=== PATIENT | female | born 1960 | race African-American/Black ===

== ENCOUNTER → 2017-04-06 | Outpatient (CLI) | payer OTHER ==
[~2017-04-06] VITALS: Ht 152.4 cm; Wt 79.4 kg
[~2017-04-06] MED LIST: FLEXERIL10 MG PO; GILTUSS TR TAB1 EACH PO; ZITHROMAX500 MG PO; ZYRTEC10 MG PO
== END | disposition home or self-care (01) ==
LOC: PPHC 17:47
DX: H92.01 Otalgia, right ear (principal); J02.9 Acute pharyngitis, unspecified; R09.81 Nasal congestion

== ENCOUNTER 2018-06-05 07:57 | Outpatient (CLI) | payer OTHER | END 2018-06-05 08:04 | disposition home or self-care (01) | LOC: MRI 07:57 | DX: M54.5 Low back pain (principal); M54.16 Radiculopathy, lumbar region | CPT/HCPCS: 72148 ==

== ENCOUNTER 2018-06-16 13:29 | Outpatient (CLI) | payer OTHER | END 2018-06-16 13:34 | disposition home or self-care (01) | LOC: LAB 13:29 | DX: Z11.3 Encounter for screening for infections with a predominantly sexual mode of transmission (principal) ==

== ENCOUNTER → 2018-09-20 08:29 | Outpatient (CLI) | payer OTHER | END | disposition home or self-care (01) | LOC: LAB 08:29 | DX: Z12.11 Encounter for screening for malignant neoplasm of colon (principal); R42 Dizziness and giddiness; R73.01 Impaired fasting glucose ==

== ENCOUNTER 2018-09-23 09:17 | Outpatient (CLI) | payer OTHER | END 2018-09-23 09:35 | disposition home or self-care (01) | LOC: LAB 09:17 | DX: Z12.11 Encounter for screening for malignant neoplasm of colon (principal); R73.01 Impaired fasting glucose; R42 Dizziness and giddiness ==

== ENCOUNTER 2018-09-26 10:07 | Outpatient (CLI) | payer OTHER | END 2018-09-26 10:35 | disposition home or self-care (01) | LOC: MAMO-SONO 10:07 | DX: Z12.31 Encounter for screening mammogram for malignant neoplasm of breast (principal); Z87.898 Personal history of other specified conditions ==

== ENCOUNTER → 2019-01-26 | Outpatient (CLI) | payer OTHER | END | disposition home or self-care (01) | LOC: RAD 14:37 | DX: M54.5 Low back pain (principal); M54.6 Pain in thoracic spine; M54.2 Cervicalgia; M25.511 Pain in right shoulder ==

== ENCOUNTER → 2019-11-29 | Outpatient (CLI) | payer OTHER | END | disposition home or self-care (01) | LOC: PPH VACUNA 09:00 | DX: Z23 Encounter for immunization (principal) ==

== ENCOUNTER → 2019-12-21 09:51 | Outpatient (CLI) | payer OTHER | END | disposition home or self-care (01) | LOC: LAB 09:51 | PROVIDERS: ATTEND Internal Medicine | DX: I10 Essential (primary) hypertension (principal); E03.8 Other specified hypothyroidism; M54.5 Low back pain; E78.89 Other lipoprotein metabolism disorders; E11.51 Type 2 diabetes mellitus with diabetic peripheral angiopathy without gangrene; E55.9 Vitamin D deficiency, unspecified; E66.8 Other obesity; G62.89 Other specified polyneuropathies; M89.8X8 Other specified disorders of bone, other site; N63.10 Unspecified lump in the right breast, unspecified quadrant; N63.11 Unspecified lump in the right breast, upper outer quadrant; N63.12 Unspecified lump in the right breast, upper inner quadrant ==

== ENCOUNTER → 2020-01-04 | Outpatient (CLI) | payer OTHER | END | disposition home or self-care (01) | LOC: LAB 17:16 | PROVIDERS: ATTEND Internal Medicine | DX: I10 Essential (primary) hypertension (principal); M54.5 Low back pain; Z01.810 Encounter for preprocedural cardiovascular examination; E03.8 Other specified hypothyroidism; E78.89 Other lipoprotein metabolism disorders; E11.51 Type 2 diabetes mellitus with diabetic peripheral angiopathy without gangrene; E55.9 Vitamin D deficiency, unspecified; E66.8 Other obesity; G62.89 Other specified polyneuropathies; M89.8X8 Other specified disorders of bone, other site; N63.10 Unspecified lump in the right breast, unspecified quadrant; N63.11 Unspecified lump in the right breast, upper outer quadrant; N63.12 Unspecified lump in the right breast, upper inner quadrant ==

== ENCOUNTER 2020-02-21 12:12 | Outpatient (CLI) | payer OTHER | END 2020-02-21 15:00 | disposition home or self-care (01) | LOC: PPH VACUNA 12:12 | DX: Z23 Encounter for immunization (principal) ==

== ENCOUNTER 2020-04-09 15:28 | Outpatient (CLI) | payer OTHER | END 2020-04-09 15:35 | disposition home or self-care (01) | LOC: LAB 15:28 | PROVIDERS: ATTEND Physical Medicine & Rehabilitation | DX: Z03.818 Encounter for observation for suspected exposure to other biological agents ruled out (principal); Z20.828 Contact with and (suspected) exposure to other viral communicable diseases; R05 Cough; R50.9 Fever, unspecified ==

== ENCOUNTER 2020-04-15 11:14 | Outpatient (CLI) | payer OTHER | END 2020-04-15 11:17 | disposition home or self-care (01) | LOC: LAB 11:14 | PROVIDERS: ATTEND Internal Medicine | DX: I10 Essential (primary) hypertension (principal); M54.5 Low back pain; E03.8 Other specified hypothyroidism; E78.89 Other lipoprotein metabolism disorders; E11.51 Type 2 diabetes mellitus with diabetic peripheral angiopathy without gangrene; E55.9 Vitamin D deficiency, unspecified; E66.8 Other obesity; G62.89 Other specified polyneuropathies; M89.8X8 Other specified disorders of bone, other site; N63.11 Unspecified lump in the right breast, upper outer quadrant; N63.12 Unspecified lump in the right breast, upper inner quadrant; L13.0 Dermatitis herpetiformis; Z13.820 Encounter for screening for osteoporosis ==

== ENCOUNTER 2020-05-01 13:19 | Outpatient (CLI) | payer OTHER | END 2020-05-01 13:28 | disposition home or self-care (01) | LOC: LAB 13:19 | PROVIDERS: ATTEND Otolaryngology Otology & Neurotology | DX: I10 Essential (primary) hypertension (principal); M54.5 Low back pain; E03.8 Other specified hypothyroidism; E78.89 Other lipoprotein metabolism disorders; E11.51 Type 2 diabetes mellitus with diabetic peripheral angiopathy without gangrene; E55.9 Vitamin D deficiency, unspecified; E66.8 Other obesity; G62.89 Other specified polyneuropathies; M89.8X8 Other specified disorders of bone, other site; N63.10 Unspecified lump in the right breast, unspecified quadrant; N63.11 Unspecified lump in the right breast, upper outer quadrant; L13.0 Dermatitis herpetiformis; Z13.820 Encounter for screening for osteoporosis ==

== ENCOUNTER → 2020-10-28 09:32 | Outpatient (CLI) | payer OTHER | END | disposition home or self-care (01) | LOC: RAD 09:32 | PROVIDERS: ATTEND Physical Medicine & Rehabilitation | DX: S62.91XA Unspecified fracture of right hand, initial encounter for closed fracture (principal) ==

== ENCOUNTER 2020-12-30 12:48 | Outpatient (CLI) | payer OTHER | END 2020-12-30 12:59 | disposition home or self-care (01) | LOC: RAD 12:48 | PROVIDERS: ATTEND Physical Medicine & Rehabilitation | DX: M54.59 Other low back pain (principal); S52.601D Unspecified fracture of lower end of right ulna, subsequent encounter for closed fracture with routine healing; S52.501D Unspecified fracture of the lower end of right radius, subsequent encounter for closed fracture with routine healing ==

== ENCOUNTER 2021-04-10 08:00 | Outpatient (CLI) | payer OTHER ==
[~2021-04-10 08:00] MED LIST changes: +ALEVE220 M1 PO; +DUI500 PO; +PERCOCET 5-3251 EACH PO
== END 2021-04-10 08:30 | disposition home or self-care (01) ==
LOC: PPH VACUNA 08:00
PROVIDERS: ATTEND Emergency Medicine Pediatric Emergency Medicine
DX: Z23 Encounter for immunization (principal)
CPT/HCPCS: 90686; G0008

== ENCOUNTER 2021-06-08 15:23 | Outpatient (CLI) | payer OTHER | END 2021-06-08 15:38 | disposition home or self-care (01) | LOC: SONOGRAMA 15:23 | PROVIDERS: ATTEND Physical Medicine & Rehabilitation | DX: M25.511 Pain in right shoulder (principal) ==

== ENCOUNTER 2021-11-05 13:28 | Outpatient (CLI) | payer OTHER | END 2021-11-05 13:30 | disposition home or self-care (01) | LOC: MRI 13:28 | PROVIDERS: ATTEND Physical Medicine & Rehabilitation | DX: M54.2 Cervicalgia (principal); M54.12 Radiculopathy, cervical region | CPT/HCPCS: 72141 ==

== ENCOUNTER 2021-12-08 12:56 | Outpatient (CLI) | payer OTHER | END 2021-12-08 13:03 | disposition home or self-care (01) | LOC: LAB 12:56 | PROVIDERS: ATTEND Internal Medicine Hematology & Oncology | DX: K29.40 Chronic atrophic gastritis without bleeding (principal); D51.3 Other dietary vitamin B12 deficiency anemia; K90.0 Celiac disease ==

== ENCOUNTER → 2021-12-17 | Outpatient (CLI) | payer OTHER | END | disposition home or self-care (01) | LOC: MAMO-SONO 13:35 | DX: Z12.31 Encounter for screening mammogram for malignant neoplasm of breast (principal); N64.4 Mastodynia ==

== ENCOUNTER 2021-12-23 13:28 | Outpatient (CLI) | payer OTHER | END 2021-12-23 13:32 | disposition home or self-care (01) | LOC: NUCLEAR 13:28 | PROVIDERS: ATTEND Obstetrics & Gynecology | DX: M81.0 Age-related osteoporosis without current pathological fracture (principal); Z91.040 Latex allergy status ==

== ENCOUNTER 2022-04-22 16:12 | Outpatient (CLI) | payer OTHER | END 2022-04-22 16:13 | disposition home or self-care (01) | LOC: LAB 16:12 | PROVIDERS: ATTEND Internal Medicine Hematology & Oncology | DX: D70.8 Other neutropenia (principal); D51.3 Other dietary vitamin B12 deficiency anemia ==

== ENCOUNTER 2022-04-27 08:21 | Outpatient (CLI) | payer OTHER | END 2022-04-27 08:25 | disposition home or self-care (01) | LOC: LAB 08:21 | PROVIDERS: ATTEND Obstetrics & Gynecology | DX: R53.83 Other fatigue (principal) ==

== ENCOUNTER 2022-09-29 07:43 | Outpatient (CLI) | payer OTHER | END 2022-09-29 07:48 | disposition home or self-care (01) | LOC: LAB 07:43 | DX: E55.9 Vitamin D deficiency, unspecified (principal); M13.0 Polyarthritis, unspecified; M81.0 Age-related osteoporosis without current pathological fracture ==

== ENCOUNTER → 2022-10-08 07:44 | Outpatient (CLI) | payer OTHER | END | disposition home or self-care (01) | LOC: LAB 07:44 | PROVIDERS: ATTEND Obstetrics & Gynecology | DX: N95.9 Unspecified menopausal and perimenopausal disorder (principal) ==

== ENCOUNTER 2022-10-18 08:22 | Outpatient (CLI) | payer OTHER | END 2022-10-18 14:38 | disposition home or self-care (01) | LOC: LAB 08:22 | PROVIDERS: ATTEND Surgery | DX: Z86.010 Personal history of colon polyps (principal); K57.30 Diverticulosis of large intestine without perforation or abscess without bleeding ==

== ENCOUNTER 2022-11-05 12:57 | Outpatient (CLI) | payer OTHER | END 2022-11-05 12:58 | disposition home or self-care (01) | LOC: LAB 12:57 | PROVIDERS: ATTEND Obstetrics & Gynecology | DX: N95.9 Unspecified menopausal and perimenopausal disorder (principal); R10.2 Pelvic and perineal pain; R53.83 Other fatigue; R68.82 Decreased libido ==

== ENCOUNTER 2022-11-15 06:00 | Day surgery (SDC) | payer OTHER | END 2022-11-15 13:15 | disposition home or self-care (01) | LOC: AMB-ENDOS 06:00 | PROVIDERS: ATTEND Surgery | DX: D12.3 Benign neoplasm of transverse colon (principal); D17.79 Benign lipomatous neoplasm of other sites; K57.30 Diverticulosis of large intestine without perforation or abscess without bleeding; Z20.822 Contact with and (suspected) exposure to COVID-19; Z91.040 Latex allergy status ==

== ENCOUNTER 2022-12-23 14:25 | Outpatient (CLI) | payer OTHER | END 2022-12-23 14:32 | disposition home or self-care (01) | LOC: MAMO-SONO 14:25 | PROVIDERS: ATTEND Surgery | DX: N60.11 Diffuse cystic mastopathy of right breast (principal); N60.12 Diffuse cystic mastopathy of left breast; Z12.31 Encounter for screening mammogram for malignant neoplasm of breast ==

== ENCOUNTER 2023-05-19 07:40 | Outpatient (CLI) | payer OTHER ==
[2023-05-19 08:32] LABS: URINE APPEARANCE Clear; URINE BILIRRUBIN Negative (NEGATIVE); URINE BLOOD Negative; URINE COLOR Yellow; URINE GLUCOSE Negative (NEGATIVE); URINE LEUKOCYTE Trace; URINE NITRATE Negative; URINE PROTEIN Negative (NEGATIVE); URINE UROBILINOGEN 0.2 E.U./dl
[2023-05-19 08:36] LABS: URINE BACTERIA 219.1 uL (0.0-1933); URINE EPITHELIAL CELLS 5.4 uL (0.0-38.8); URINE RBC 2.5 uL (0.0-20.8); URINE WBC 5.4 uL (0.0-23.2)
[2023-05-19 08:54] LABS: HEMATOCRIT 42.2 % (36.0-45.00); HEMOGLOBIN 14.5 g/dL (12.0-15.00); MEAN CELL VOLUME 88.1 fL (80.00-100.00); MEAN CORPUSCULAR HEMOGLOBIN 30.3 pg (27.00-32.0); MEAN CORPUSCULAR HGB CONC 34.3 g/dl (32.0-36.0); PLATELET COUNT 213 K/uL (150-450); RED BLOOD COUNT 4.78 M/uL (4.00-6.00); RED CELL DISTRIBUTION WIDTH 13.2 % (11.5-14.5)
[2023-05-19 09:17] LABS: ALBUMIN 4.2 gm/dL (3.4-5.0); BILIRUBIN TOTAL 0.63 mg/dL (0.3-1.2); CALCIUM 9.5 mg/dL (8.5-10.1); CREATININE SERUM 0.85 mg/dL (0.55-1.02); GFR 67.55; GLOBULINA 3.3 G/DL (2.4-3.5); POTASSIUM 4.44 mEq/L (3.5-5.1); T4 FREE 0.98 NG/ML (0.76-1.46); TOTAL PROTEIN 7.5 gm/dL (6.4-8.2)
== END 2023-05-19 12:26 | disposition home or self-care (01) ==
LOC: LAB 07:40
PROVIDERS: ATTEND Internal Medicine
DX: E11.65 Type 2 diabetes mellitus with hyperglycemia (principal); E03.8 Other specified hypothyroidism; E78.5 Hyperlipidemia, unspecified; E55.9 Vitamin D deficiency, unspecified; E53.8 Deficiency of other specified B group vitamins

== ENCOUNTER 2023-05-20 07:41 | Outpatient (CLI) | payer OTHER | END 2023-05-20 15:48 | disposition home or self-care (01) | LOC: SONOGRAMA 07:41 | PROVIDERS: ATTEND Internal Medicine | DX: E04.2 Nontoxic multinodular goiter (principal) ==

== ENCOUNTER 2023-10-18 08:51 | Outpatient (CLI) | payer OTHER ==
[2023-10-18 09:49] LABS: HEMATOCRIT 39.1 % (36.0-45.00); HEMOGLOBIN 13.5 g/dL (12.0-15.00); MEAN CORPUSCULAR HEMOGLOBIN 29.6 pg (27.00-32.0); MEAN CORPUSCULAR HGB CONC 34.5 g/dl (32.0-36.0); PLATELET COUNT 189 K/uL (150-450); RED BLOOD COUNT 4.55 M/uL (4.00-6.00); RED CELL DISTRIBUTION WIDTH 13.6 % (11.5-14.5)
[2023-10-18 10:29] LABS: BILIRUBIN TOTAL 0.46 mg/dL (0.3-1.2); CALCIUM 9.3 mg/dL (8.5-10.1); CHOL HDL RATIO 3.4 (0-5.0); CREATININE SERUM 0.74 mg/dL (0.55-1.02); GFR 79.01; GLOBULINA 3.2 G/DL (2.4-3.5); POTASSIUM 4.67 mEq/L (3.5-5.1); TOTAL PROTEIN 7.2 gm/dL (6.4-8.2); TSH 1.93 uIU/mL (0.358-3.74)
== END 2023-10-18 09:00 | disposition home or self-care (01) ==
LOC: LAB 08:51
PROVIDERS: ATTEND Internal Medicine
DX: E11.65 Type 2 diabetes mellitus with hyperglycemia (principal); E78.5 Hyperlipidemia, unspecified; I10 Essential (primary) hypertension; E03.8 Other specified hypothyroidism

== ENCOUNTER 2023-11-24 15:16 | Outpatient (CLI) | payer OTHER | END 2023-11-24 15:54 | disposition home or self-care (01) | LOC: RAD 15:16 | DX: M99.01 Segmental and somatic dysfunction of cervical region (principal); M99.02 Segmental and somatic dysfunction of thoracic region; M99.03 Segmental and somatic dysfunction of lumbar region; M99.04 Segmental and somatic dysfunction of sacral region ==

== ENCOUNTER 2023-12-23 12:15 | Outpatient (CLI) | payer OTHER ==
[2023-12-28 11:42] LABS: ESTRADIOL SERUM < 5.0 pg/mL (0.0-54.7); PROGESTERONA < 0.1 ng/mL (.)
[2023-12-31 05:05] LABS: ESTROGENO 54 pg/mL (40-244)
[2024-01-01 17:08] LABS: T T 24 ng/dL (3-67); test free 1.4 pg/mL (0.0-4.2)
== END 2023-12-23 23:00 | disposition home or self-care (01) ==
LOC: LAB 12:15
PROVIDERS: ATTEND Obstetrics & Gynecology
DX: N95.0 Postmenopausal bleeding (principal)

== ENCOUNTER 2023-12-28 12:42 | Outpatient (CLI) | payer OTHER | END 2023-12-28 12:49 | disposition home or self-care (01) | LOC: MAMO-SONO 12:42 | PROVIDERS: ATTEND Obstetrics & Gynecology | DX: N93.9 Abnormal uterine and vaginal bleeding, unspecified (principal); Z12.31 Encounter for screening mammogram for malignant neoplasm of breast ==

== ENCOUNTER 2024-04-24 08:39 | Outpatient (CLI) | payer OTHER ==
[2024-04-24 09:00] LABS: HEMATOCRIT 41.3 % (36.0-45.00); HEMOGLOBIN 13.8 g/dL (12.0-15.00); MEAN CELL VOLUME 88.2 fL (80.00-100.00); MEAN CORPUSCULAR HEMOGLOBIN 29.4 pg (27.00-32.0); MEAN CORPUSCULAR HGB CONC 33.4 g/dl (32.0-36.0); PLATELET COUNT 194 K/uL (150-450); RED BLOOD COUNT 4.68 M/uL (4.00-6.00); RED CELL DISTRIBUTION WIDTH 13.2 % (11.5-14.5)
[2024-04-24 09:38] LABS: ALBUMIN 3.9 gm/dL (3.4-5.0); BILIRUBIN TOTAL 0.45 mg/dL (0.3-1.2); CHOL HDL RATIO 3.5 (0-5.0); CREATININE SERUM 0.7 mg/dL (0.55-1.02); GFR 84.24; GLOBULINA 3.3 G/DL (2.4-3.5); POTASSIUM 4.73 mEq/L (3.5-5.1); T4 FREE 0.91 NG/ML (0.76-1.46); TOTAL PROTEIN 7.2 gm/dL (6.4-8.2); TSH 2.29 uIU/mL (0.358-3.74)
== END 2024-04-24 08:40 | disposition home or self-care (01) ==
LOC: LAB 08:39
PROVIDERS: ATTEND Internal Medicine
DX: E11.65 Type 2 diabetes mellitus with hyperglycemia (principal); E03.8 Other specified hypothyroidism; E11.9 Type 2 diabetes mellitus without complications; E78.5 Hyperlipidemia, unspecified

== ENCOUNTER 2025-01-01 13:29 | Outpatient (CLI) | payer OTHER | END 2025-01-01 13:32 | disposition home or self-care (01) | LOC: MAMO-SONO 13:29 | PROVIDERS: ATTEND Surgery | DX: N60.11 Diffuse cystic mastopathy of right breast (principal); N60.12 Diffuse cystic mastopathy of left breast ==